=== PATIENT | male | born 1985 | race Caucasian/White ===

== ENCOUNTER 2021-02-25 01:37 | Emergency (ER) | payer BC ==
[~2021-02-25] VITALS: Ht 188 cm; Wt 90.9 kg
[2021-02-25 01:39] VITALS: BP 110/62
[2021-02-25] MEDS ORDERED: acetaminophen 325mg tablet PO ONE (01:45)
[2021-02-25] MEDS ORDERED: ondansetron 4mg rapidly disintigrating tab PO ONE (01:45)
[2021-02-25] MEDS ORDERED: ONDA4TAB6 PO (03:19)
== END 2021-02-25 03:31 | disposition home or self-care (01) ==
LOC: ER 01:38
DX: R11.2 Nausea with vomiting, unspecified (principal); Z20.822 Contact with and (suspected) exposure to COVID-19; R43.8 Other disturbances of smell and taste; R50.9 Fever, unspecified; Z79.899 Other long term (current) drug therapy
CPT/HCPCS: 87635; 99283; C9803

== ENCOUNTER 2021-11-27 07:09 | Emergency (ER) | payer BC, OTHER ==
[~2021-11-27] VITALS: Ht 182.9 cm; Wt 90.9 kg
[~2021-11-27 07:09] MED LIST: ONDA4TAB6 PO
[2021-11-27] MEDS ORDERED: LIDOcaine 1% 30ml preserv. free vial SQ STA (08:33)
[2021-11-27] MEDS ORDERED: ketorolac trometh inj. 60 MG/2 ML VIAL IM ONE (08:50)
[2021-11-27] MEDS ORDERED: morphine 4 MG/ML inj SYRINge IM ONE (08:50)
[2021-11-27] MEDS ORDERED: OXYC-145 PO (09:25)
[2021-11-27 10:08] VITALS: BP 131/79
== END 2021-11-27 10:13 | disposition home or self-care (01) ==
LOC: ER 07:10
DX: M54.16 Radiculopathy, lumbar region (principal); Z88.8 Allergy status to other drugs, medicaments and biological substances; Z79.899 Other long term (current) drug therapy
CPT/HCPCS: 20553; 72131; 96372; 99284; J1885; J2270